=== PATIENT | male | born 1950 | race Caucasian/White ===

== ENCOUNTER 2021-10-03 01:05 | Day surgery (SDC) | payer OTHER, SELFPAY ==
[2021-10-02 13:46] VITALS: BMI 27.6
[2021-10-03] VITALS (10 sets, daily range): BP systolic 139–167; BP diastolic 55–65; PULSE 40–55; RESP 10–16; TEMP 36.2; O2SAT 92–97; BMI 27.5
[2021-10-03 08:07] LABS: Basophils Percent Auto 0.2 % (0.2-1.2); Eosinophils Absolute Auto 0.1 K/mm3 (0-0.3); Eosinophils Percent Auto 1.7 % (0-4.4); Hemoglobin 14.5 g/dL (14.0-18.0); Immature Granulocyte Absolute 0.02 K/mm3 (0.00-0.031); Immature Granulocyte Percent A 0.3 % (0-0.5); Lymphocytes Absolute Auto 2.49 K/mm3 (0.9-3.2); Lymphocytes Percent Auto 43.5 % (18.3-44.2); Mean Corpuscular Hemoglobin 30.7 pg (26-34); Mean Corpuscular Volume 93.2 fl (80-100); Mean Platelet Volume 11.8 fl (7.4-10.4); Monocytes Absolute Auto 0.5 K/mm3 (0.1-0.6); Monocytes Percent Auto 9.4 % (2.6-8.5); Neutrophils Absolute Auto 2.6 K/mm3 (1.3-6.7); Neutrophils Percent Auto 44.9 % (45.5-73.1); Platelet Count Result 250 k/mm3 (150-375); Red Blood Count 4.72 M/mm3 (4.6-6.20); Red Cell Distribution Width 13.2 % (11.5-14.5); White Blood Count 5.7 K/mm3 (4.5-10.0)
[2021-10-03 08:19] LABS: Anion Gap 6 mmol/L (8-16); Blood Urea Nitrogen 27 mg/dL (9-20); Calcium 10.3 mg/dL (8.4-10.2); Carbon Dioxide 33 mmol/L (22-30); Chloride 106 mmol/L (98-107); Estimated CRCL calculation 54 ml/min; Estimated Glomerular Filt Rate 60; Glucose 120 mg/dL (65-110); Potassium 4.7 mmol/L (3.4-5.0); Sodium 145 mmol/L (137-145)
--- NOTE | 2021-10-03 10:22 | P.PCNCC_ITS ---
Cardiac Cath Procedure Note Date of procedure:: 10/03/21 Performing physician:: Kira Monique MD date of service 10/03/2021 Indication:: Abnormal stress test Brief clinical history:: this 70 year patient with past history CABG 17 years ago setting inability to stent artery. he was told it was to the back of the heart. He has been experiencing intermittent pins and needles discomfort in the chest with no aggravating relieving factors. Underwent stress test that shows fixed defect in the inferior wall. Procedure Procedure performed:: 1-Moderate sedation that started at 9:40 a.m.and ended at 10:03 a.m. total duration of 23 minutes using 2mg of Versed [id number] fentanyl. The registered nurse was conner bearden. 2-Selective left and right coronary angiogram. 3-Left heart catheterization with measurement of LVEDP and measurement of gradient across aortic valve. 4- selective left subclavian arterial angiogram. 4-Right common femoral arterial angiogram. 5-Deployment of 6 Panamanian Angio-Seal. Sedation/Medication given:: Moderate sedation. Access site:: Right common femoral artery. Estimated blood loss:: 10cc Procedure note:: After informed consent patient was brought in to cathode ray tube assembler with the was draped and prepped in usual manner. Moderate sedation was given and the right groin was infiltrated using 1% lidocaine. Five Panamanian sheath was obtained using micropuncture needle and the modified Seldinger technique. Selective left coronary angiogram was done using JL4 catheter with the tip of the catheter placed in the left main coronary artery. Selective right coronary angiogram was done using JR4 catheter with the tip of the catheter placed to the right coronary artery. JR4 catheter was entered in the left subclavian artery and th en selective left subclavian arterial angiogram was done as well.After that 5 Panamanian pigtail catheter was advanced across the aortic valve into the left ventricle with measurement of LVEDP and measurement of gradient across aortic valve. Right common femoral arterial angiogram was done. Findings:: 1- left coronary artery is a large artery that divides into large LAD, large circumflex artery. Left main Has minimal irregularities. 2- left anterior descending artery is a large artery that runs and wraps around the apex. Has diffuse proximal 30% proximally. there is evidence of clips in the LAD territory. However no competitive flow seen. 3- leftcircumflex artery is a large artery With minimal irregularities. Large OM1 and large OM2. Minimal irregularities. 4- right coronary artery is Totally occluded proximally. 5- Left subclavian artery angiogram shows no significant disease in the left subclavian artery and no evidence that ENRIQUE exists. Most likely it is occluded . 5- LVEDP was 20 mm Hg and no gradient across aortic valve. 6- opening arterial pressure was 150/70 and closing pressure [id number] 7- right femoral artery angiogram shows no significant disease in the right common femoral artery. Conclusion:: Totally occluded right coronary artery. ENRIQUE is non-existent and most likely occluded. Assessment and Plan Additional Plan Continue medical management
--- NOTE | 2021-10-03 10:33 | WPDHPUPDATE1 ---
History and Physical Update Update Date/Time: 10/03/21 10:33 History and Physical has been reviewed, including an updated exam of the patient. There are NO changes in the patient's condition. Risks, benefits, and alternatives have been discussed and questions answered. Patient agrees to proceed with procedure.
--- NOTE | 2021-10-03 10:33 | WPDMODSED ---
Moderate Sedation Note-Pt Data Patient Data Allergies Allergy/AdvReac Type Severity Reaction Status Date / Time No Known Allergies Allergy Verified 10/03/21 07:55 Home Medications Medication Instructions Recorded Confirmed Type aspirin 81 mg tablet,delayed 81 mg PO DAILY 05/10/21 10/03/21 History release celecoxib 200 mg capsule 200 mg PO BID 90 Days #180 cap 05/10/21 10/02/21 Rx escitalopram oxalate 20 mg tablet 20 mg PO DAILY 90 Days #90 tablet 05/10/21 10/02/21 Rx fenofibrate nanocrystallized 145 145 mg PO DAILY #90 tablet 05/10/21 10/02/21 Rx mg tablet rosuvastatin 20 mg tablet 20 mg PO DAILY 90 Days #90 tablet 05/10/21 10/03/21 Rx Current Medications: Active Medications Sodium Chloride (Normal Saline Iv) 500 mls @ 100 mls/hr IV CONT .Q5H [place] Sedation/Anesthesia: No previous sedation/anesthesia problems (including family history). [facility] Past Medical History Medical History Annual visit for general adult medical examination with abnormal findings Facial skin lesion Heart attack Vitamin D deficiency, unspecified Surgical History Surgical History History of open heart surgery Family History Family History Father Family history of primary malignant neoplasm of liver Mother Family history of malignant neoplasm of brain Other Diabetes mellitus Family history of arthritis Family history of malignant neoplasm Social History Social History Smoking status: Former smoker Second hand tobacco smoke exposure: No Smoking end date: 10/02/21 Alcohol intake: current Living arrangements: with family Gender identity (if verbalized by the patient): Male Sexual Orientation (if Verbalized by the Patient): Straight or Heterosexual Mod Sed Physical Exam Physical Exam Pre Procedural Exam: Normal: Appearance, Eyes, Ears, Nose, Neck, Throat, Airway, Lungs, Heart Size, Heart Rate, Heart Rhythm, Neuro Exam, Abdomen, Liver, Kidneys, Spleen, Breasts, Genitalia, Extremities and Skin Hours since solid foods: 8 Hours since liquid intake: 8 Mallampati Classification: class 1 Internal Medicine - PN: Obj Da Vital Signs Vital Signs: Vital Signs - 24 hr 10/03/21 07:58 Temperature 36.2 C L Pulse Rate 55 L Respiratory Rate 12 Blood Pressure 167/60 H Pulse Oximetry 95 Meds/Results Medications: Active Medications Generic Name Dose Route Start Last Admin Trade Name Freq PRN Reason Stop Dose Admin Sodium Chloride 500 mls @ 100 mls/hr 10/03/21 07:30 Normal Saline Iv IV CONT .Q5H [place] Labs CBC & Chem 7: 10/03/21 07:46 10/03/21 07:46 Labs: Laboratory Results - last 24 hr 10/03/21 10/03/21 07:46 07:46 WBC 5.7 RBC 4.72 Hgb 14.5 Hct 44.0 MCV 93.2 MCH 30.7 MCHC 33.0 RDW 13.2 Plt Count 250 MPV 11.8 H Immature Gran % (Auto) 0.3 Neut % (Auto) 44.9 L Lymph % (Auto) 43.5 Posey % (Auto) 9.4 H Eos % (Auto) 1.7 Baso % (Auto) 0.2 Lymph # (Auto) 2.49 Posey # (Auto) 0.5 Eos # (Auto) 0.1 Baso # (Auto) 0.0 Abs Immat Gran (auto) 0.02 Absolute Neuts (auto) 2.6 Absolute Nucleated RBC 0.0 Nucleated RBC % 0.0 Sodium 145 Potassium 4.7 Chloride 106 Carbon Dioxide 33 H Anion Gap 6 L BUN 27 H Creatinine 1.20 Estim Creat Clear Calc 54 Estimated GFR 60 Glucose 120 H Calcium 10.3 H ASA Classification/Sedation ASA Classification/Sedation ASA Class: I Emergent: No Risks: Risks, benefits and alternatives explained and patient/family accepted plan for sedation. Patient re-evaluated immediately prior to sedation.
--- NOTE | 2021-10-03 13:39 | SUR.PHASEII ---
d/c instructions given to patient and at bedside. written instructions sent home with patient. all questions and concerns addressed. iv d/c tip intact. patient ambulated around room w/o difficulty and transferred to personal vehicle via wheelchair.
== END 2021-10-03 13:39 | disposition home or self-care (01) ==
PROVIDERS: PCP Internal Medicine; Visit Provider Internal Medicine Cardiovascular Disease
PROC: 4A023N7 Measurement of Cardiac Sampling and Pressure, Left Heart, Percutaneous Approach (ICD-10-PCS; CPT 93452; principal; 2021-10-03 09:00)
DX: I25.10 Atherosclerotic heart disease of native coronary artery without angina pectoris (principal); R93.49 Abnormal radiologic findings on diagnostic imaging of other urinary organs; R07.89 Other chest pain; Z95.1 Presence of aortocoronary bypass graft; I25.2 Old myocardial infarction; E55.9 Vitamin D deficiency, unspecified; E78.5 Hyperlipidemia, unspecified; Z79.82 Long term (current) use of aspirin; Z87.891 Personal history of nicotine dependence
CPT/HCPCS: 36415; 80048; 85025; 93458; C1760; C1887; C1894; G0269; J1644; J2250; J3010

== ENCOUNTER 2022-05-29 07:42 | Outpatient (CLI) | payer OTHER, SELFPAY ==
--- NOTE | ~2022-05-29 | US_ITS ---
EXAMINATION: US right upper quadrant DATE: 05/29/2022 08:39 INDICATION: Abnormal liver function tests. TECHNIQUE: Multiple grayscale and Doppler ultrasound images of the abdomen were obtained. COMPARISON: Chest CT 09/28/2010 FINDINGS: The visualized portions of the head and body of the pancreas are normal. There is diffuse h epatic steatosis. There is normal flow in main portal vein. The gallbladder is normal in size. No gal lstones or gallbladder wall thickening. There is no sonographic Bunch sign. The common duct is pablo l and measures 5 mm. IMPRESSION: 1. Diffuse hepatic steatosis. Reviewed, dictated and finalized at location A.
== END 2022-05-29 07:43 | disposition home or self-care (01) ==
PROVIDERS: PCP Internal Medicine; Visit Provider Clinical Nurse Specialist
DX: R74.01 Elevation of levels of liver transaminase levels (principal); K76.0 Fatty (change of) liver, not elsewhere classified
CPT/HCPCS: 76705

== ENCOUNTER 2022-06-17 07:53 | Outpatient (CLI) | payer OTHER, SELFPAY ==
--- NOTE | 2022-07-14 18:03 | WPDSLEEPSTUD ---
Sleep Study Date of Study: 06/17/22 Ordering Provider: COTY Durham Interpreting Physician: Toya Connolly, Sleep Study Type: Split Polysomnogram Height: 1.78 m Weight: 87.09 kg Body Mass Index: 27.5 Neck Circumference (inches): 18 [place]: 9 Reason for Sleep Study Unrefreshing sleep and daytime hypersomnia Sleep History The patient had a polysomnogram at [facility] on 08/06/2008 that showed an AHI of 24.4. It was recommended that he have a PAP Titration study. It was never completed. The patient is a 71-year-old male with CAD w/ CABG x2, hypertension, hyperlipidemia, hepatic steatosis, depression, history of tobacco use and previously diagnosed sleep apnea that had a split night study ordered by his primary care physician. The patient occasionally awakens from sleep short of breath. He denies awakening at night with heartburn, belching or cough. He occasionally snores loud enough that others complain. He rarely has trouble sleeping when he has a cold. He occasionally wakes up gasping for air throughout the night. He frequently has breathing problems at night observed by himself or others. He occasionally sweats excessively at night. He denies having heart palpitations or irregular heartbeats during the night. He occasionally falls asleep during the day but never while driving. He denies sleep paralysis and cataplexy. He occasionally has trouble at school or work due to sleepiness. He occasionally experiences vivid dreamlike scenes upon awakening or falling asleep. He denies feeling afraid of going to sleep. He occasionally has nightmares. He occasionally remembers his dreams. He frequently has thoughts racing through his mind. He occasionally feels sad or depressed. He frequently has anxiety. He occasionally has muscular tension. He denies noticing parts of his body jerk. He occasionally kicks during the night. He occasionally has crawling and aching feelings in his legs as well as leg pain during the night. He occasionally grinds his teeth during sleep but never awakens with morning jaw pain. He is occasionally bothered by pain during the day but rarely awakened by pain during the night. He occasionally wakes up feeling stiff in the morning. He rarely wakes up with sore achy muscles. He rarely wakes up with pain in the neck, spine and other joints. He goes to bed at 9:00 p.m. on both weekdays and weekends. It takes him 30 minutes to an hour to fall asleep. He wakes up 2-3 times throughout the night for unknown reasons. When he awakens, he will think of things he needs to do for the next day. He is able to fall asleep within 10 minutes. He wakes up at 7:00 a.m. on both weekdays and weekends. He typically gets 9 hours of sleep per night. He will stay in bed for 20 minutes after waking up in the morning. He currently lives with his . He does not consume any caffeinated beverages within 2 hours of bedtime. He does not engage in physical exercise before bedtime. He will watch television before falling asleep. He will take naps in the afternoon in the evening and they are refreshing. He consumes caffeinated products throughout the day. He will drink alcoholic beverages but the quantity was not specified. He is a former smoker. He denies recreational drug use. [facility] Past Medical History Medical History Annual visit for general adult medical examination with abnormal findings Facial skin lesion Heart attack Vitamin D deficiency, unspecified Surgical History Surgical History History of open heart surgery Family History Family History Father Family history of primary malignant neoplasm of liver Mother Family history of malignant neoplasm of brain Other Diabetes mellitus Family history of arthritis Family
[2022-07-14 18:52] VITALS: BMI 27.5
--- NOTE | 2023-11-19 13:20 | SLEEP ---
pt returned device
== END 2022-06-18 07:03 | disposition home or self-care (01) ==
LOC: ANHCSM 08:11
PROVIDERS: PCP Internal Medicine; Visit Provider Clinical Nurse Specialist
DX: G47.10 Hypersomnia, unspecified (principal); G47.39 Other sleep apnea
CPT/HCPCS: 95811

== ENCOUNTER 2022-06-17 13:47 | Outpatient (CLI) | payer OTHER, SELFPAY ==
--- NOTE | ~2022-06-17 | CT_ITS ---
EXAMINATION: CT diagnostic chest w con DATE: 06/17/2022 14:29 INDICATION: 7 mm lung nodule reported on CT scan at [facility] in November 2021 TECHNIQUE: Computed tomography (CT) of the chest was performed with 75 CC Omnipaque 350 intravenous c ontrast. Automated exposure control and iterative reconstruction technique were employed. Exam dose: 257.13 mGy-cm total exam DLP. COMPARISON: 08/18/2011 PA and lateral chest FINDINGS: Status post sternotomy. 2.6 mm peripheral posterolateral right upper lobe pulmonary nodule (series 4 image 44). Calcified 1.3 cm pulmonary granuloma at the base of the middle lobe. No pulmonary infiltrate or consolidation. There is aortic and great vessel calcification. No thoracic aortic aneurysm. There is prominent coron kimmie artery calcification. Normal heart size. No pericardial or pleural effusion. No hilar or mediastinal mass lesion or lymphadenopathy. Bilateral renal cysts, measuring up to 4.4 cm on the left. Normal morphology of the adrenal glands. Old healed posterolateral right ninth rib fracture. Prominent degenerative disc disease in the lower cervical spine including C5-6, C6-7 and C7-T1. Diffu se idiopathic skeletal hyperostosis of the thoracic spine. No suspicious osteolytic or osteoblastic l esions are noted. IMPRESSION: Middle lobe calcified pulmonary granuloma No suspicious pulmonary mass lesion is noted. Correlation with prior CT examination from [facility] is recommended. Aortic, great vessel and coronary atherosclerosis Bilateral renal cysts Reviewed, dictated and finalized at Location A. Reviewed, dictated and finalized at location B. IMPRESSION: Middle lobe calcified pulmonary granuloma No suspicious pulmonary mass lesion is noted. Correlation with prior CT examina tion from [facility] is recommended. Aortic, great vessel and coronary atherosclerosis Bilateral renal cysts
[2022-06-17 14:25] LABS: Estimated Glomerular Filt Rate > 60
== END 2022-06-17 13:48 | disposition home or self-care (01) ==
PROVIDERS: PCP Internal Medicine; Visit Provider Clinical Nurse Specialist
DX: R91.1 Solitary pulmonary nodule (principal); R91.8 Other nonspecific abnormal finding of lung field; N28.1 Cyst of kidney, acquired; I70.0 Atherosclerosis of aorta
CPT/HCPCS: 71260; Q9967

== ENCOUNTER 2022-08-01 08:55 | Outpatient (CLI) | payer OTHER, SELFPAY ==
--- NOTE | 2022-08-01 08:58 | ECHO_ITS ---
Patient Info Name: Juanito Reed Age: 71 years : 1950 Gender: Male Ht: 70 in Wt: 194 lbs BSA: 2.10 m2 HR: 56 bpm BP: 142 / 69 mmHg Heart Rhythm: Sinus Rhythm Technical Quality: Good Exam Date: 08/01/2022 9:15 AM Exam Location: [facility] Patient Status: Outpatient Admit Date: 08/01/2022 Staff Ordering Physician: Carmencita King Flying Ii Instructor: Estephania Boone RDCS Attending Provider: Carmencita King Referring Physician: Fernando CHAVIRA; Exam Type: CA echo doppler color flow Study Info Indications G47.33 - OBSTRUCTIVE SLEEP APNEA Complete two-dimensional, color flow and Doppler transthoracic echocardiogram is performed. Summary 1. Complete two-dimensional, color flow and Doppler transthoracic echocardiogram is performed. 2. Left ventricular chamber dimension is normal. 3. Left ventricular systolic function is normal, estimated at 60-65%. 4. Left atrial chamber dimension is mildly enlarged. 5. There is mild aortic valve sclerosis. 6. The mitral valve has normal leaflets. Left Ventricle Left ventricular chamber dimension is normal. Left ventricular systolic function is normal, estimated at 60-65%. The left ventricular diastolic function is normal. Right Ventricle Right ventricular chamber dimension is normal. Left Atria Left atrial chamber dimension is mildly enlarged. Right Atria Right atrial chamber dimension is normal. Aortic Valve The aortic valve is trileaflet. There is mild aortic valve sclerosis. Pulmonic Valve The pulmonic valve is normal. Mitral Valve The mitral valve has normal leaflets. Tricuspid Valve The tricuspid valve leaflets are normal. Pericardium/Pleural The pericardium appears normal. Aorta The aortic root size at the sinus of Valsalva is normal. Left Ventricular Outflow Tract Name Value Normal LVOT 2D LVOT Diameter 2.0 cm LVOT Doppler LVOT Peak Gradient 5 mmHg LVOT Mean Gradient 2 mmHg LVOT VTI 26 cm LVOT VTI/AV VTI Ratio 1.0 LVOT Stroke Volume 85 ml LVOT CO 5.1 l/min LVOT CI 2.4 l/min/m2 Pulmonic Valve Name Value Normal RVOT Doppler RVOT Peak Gradient 3 mmHg PV Doppler PV Peak Gradient 5 mmHg Mitral Valve Name Value Normal MV Doppler MV Decel [facility] 353 cm/s2
== END 2022-08-01 08:56 | disposition home or self-care (01) ==
LOC: ANHCARD 08:57
PROVIDERS: PCP Family Medicine; Visit Provider Clinical Nurse Specialist
DX: G47.33 Obstructive sleep apnea (adult) (pediatric) (principal); I45.10 Unspecified right bundle-branch block
CPT/HCPCS: 93306

== ENCOUNTER 2022-08-14 07:39 | Outpatient (CLI) | payer OTHER, SELFPAY ==
--- NOTE | 2022-08-14 13:25 | WPDPFTINT ---
PFT Procedure Performed PFT Procedure Performed Spirometry with Pre/Post Bronchodilator Plethysmography (Lung Vol) Diffusing Cap (DLCO) Flow Vol Loop PFT Interpretation This is a pulmonary function test with pre and post-bronchodilator spirometry, plethysmography and diffusing capacity. The test was performed and results interpreted in accordance with the 2019 and 2005 ATS/ERS Task Force guidelines respectively using the Global Lung Function Initiative-2012 reference equations. Patient demonstrated good effort and cooperation. Reproducibility criteria were met. The quality of the pre bronchodilator spirometry maneuver was Grade A and post bronchodilator spirometry maneuver was Grade A. Findings: Spirometry: The contour the inspiratory and expiratory flow tracing are normal. The pre bronchodilator FVC is 3.79 L, 91% predicted. The pre bronchodilator FEV1 is 2.69 L, 85% predicted. The pre bronchodilator FEV1: FVC ratio 71%. The post bronchodilator FVC is 4.16 L, representing a 10% increase. The post bronchodilator FEV1 is 2.94 L, representing a 10% increase. The post bronchodilator FEV1: FVC ratio 71%. Plethysmography: The total lung capacity is 6.62 L, 94% predicted. The functional residual capacity is 3.25 L, 87% predicted. The residual volume is 2.71 L, 108% predicted. Diffusing capacity: Diffusing capacity unadjusted for hemoglobin and carboxyhemoglobin is 17.7, 69% predicted. The diffusing capacity adjusted for alveolar volume is 3.71, 96% predicted. Impression: The spirometry is normal without evidence of an obstructive abnormality. There is no significant improvement after inhaling a single dose of albuterol. The lung volumes are normal. The diffusing capacity is normal. There are no prior studies for comparison
== END 2022-08-14 07:40 | disposition home or self-care (01) ==
PROVIDERS: PCP Clinical Nurse Specialist; Visit Provider Clinical Nurse Specialist
DX: G47.33 Obstructive sleep apnea (adult) (pediatric) (principal)
CPT/HCPCS: 94375; 94726; 94729

== ENCOUNTER → 2023-03-18 10:06 | Outpatient (CLI) | payer OTHER, SELFPAY ==
--- NOTE | ~2023-03-18 | CT_ITS ---
EXAMINATION: CT abdomen pelvis wo/w con DATE: 03/18/2023 10:43 INDICATION: Gross hematuria TECHNIQUE: Computed tomography (CT) of the abdomen and pelvis was performed without intravenous contr ast. CT of the abdomen and pelvis was then performed with a total of 130 mL Omnipaque-350 intravenous contrast using a double-bolus technique for simultaneous opacification of the renal parenchyma and r enal collecting system. Maximum intensity projection images of the collecting system were created fro m the volumetric source images by the technologist at a separate workstation. A single view of the ab domen was obtained on 2 radiographs. Automated exposure control and iterative reconstruction techniqu e were employed. The dose-length product was 2090.51 mGy-cm. COMPARISON: None FINDINGS: Lung bases are clear. Heart size is normal. Atherosclerotic coronary artery calcifications. Mediastin um wires and changes of likely coronary artery bypass grafting as well as coronary artery stenting. N o pericardial or pleural effusion. Liver, gallbladder, spleen, pancreas and bilateral adrenal glands are normal. Bilateral renal cysts the largest measuring 5.6 at the upper pole the left kidney and a 5 .3 cm parapelvic cyst at the left renal hilum. This includes an additional 1.4 cm nonenhancing comple x proteinaceous/hemorrhagic left renal cyst with slightly greater than simple fluid attenuation. No u rolithiasis. Bilateral and renal collecting systems and ureters are opacified in their near entirety. 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 No evident fillin g defects or urothelial irregularities. There are few scattered colonic diverticula without adjacent from trace stranding to suggest diverticulitis. Small bowel and appendix are normal. Bladder is pablo l. Prostatomegaly measuring 5.2 x 4.0 cm. No free intraperitoneal gas or fluid. No pathologically enl arged abdominal or pelvic lymphadenopathy. There is calcified atherosclerosis of the aorta and many o f the other arteries. There are bridging osteophytes at multiple levels in the spine, consistent with diffuse idiopathic skeletal hyperostosis (DISH). IMPRESSION: 1. Multiple bilateral renal cysts. No etiology for reported gross hematuria. Specifically no urolithi asis, renal masses or urothelial irregularities. 2. Prostatomegaly. Reviewed, dictated and finalized at location B. IMPRESSION: 1. Multiple bilateral renal cysts. No etiology for reported gross hematuria. Sp ecifically no urolithiasis, renal masses or urothelial irregularities. 2. Prostatomegaly.
== END ==
PROVIDERS: PCP Clinical Nurse Specialist; Visit Provider Clinical Nurse Specialist
DX: R31.9 Hematuria, unspecified (principal); N28.1 Cyst of kidney, acquired; N40.0 Benign prostatic hyperplasia without lower urinary tract symptoms
CPT/HCPCS: 74178; Q9967

== ENCOUNTER 2023-03-26 00:40 | Day surgery (SDC) | payer OTHER, SELFPAY ==
[2023-03-25 08:52] VITALS: BMI 29.6
--- NOTE | 2023-03-25 09:15 | PC.NURSE ---
Report to the Outpatient Waiting Room, entrance under the green pavilion located off [facility], at time ___729____ on date __03/26/23 . Planned Procedure Time: ___929 . Time changes happen often and if your time is changed the preop area will call you the afternoon before. - You and your visitor will be asked to self-screen and do not enter if you have any COVID symptoms. - A mask is optional within the hospital at this time. Patients may have clear liquids (water, carbonated beverages, clear teas, apple juice) until 3 hours prior to surgery (0630 AM) with a maximum of 20 ounces. - No food from midnight until time of surgery - Infants may have breast milk until 4 hours before surgery, infant formula 6 hours prior to surgery. - Children will be allowed to drink immediately following surgery. If applicable, please bring a bottle or sippy cup to assist with drinking. Juice, water, soda, and popsicles are readily available. For infants on formula, please bring formula the day of surgery. Pacifiers are allowed. Take the following medications with a SIP of water the morning of surgery: _AMLODIPINE, CELECOXIB, ESCITALOPRAM_ DO NOT STOP ANY OF YOUR OTHER PRESCRIPTION MEDICATIONS PRIOR TO SURGERY ?EXCEPT THE FOLLOWING Medications to discontinue per physician ___PT STATES LAST DOSE ASPIRIN 03/23/23___ Date to take last dose Please no make-up, nail romanian, hairspray, perfume, deodorant, or body powder the day of surgery. No jewelry (including any body piercings) or valuables the day of surgery, leave them at home. Please take a shower or bath the night before, or the morning of, surgery with an antibacterial soap. Wear comfortable, loose fitting clothing. Children are encouraged to wear pajamas. - Jewelry must be removed prior to entering the operating room. Rings and piercings that are not removed may be cut off. - The hospital will not accept responsibility for valuables. - Please leave all valuables, including medications, at home the day of surgery. If you are going home after surgery, a licensed trash collector truck driver must drive you home. - NO public transportation without another adult if you receive anesthesia. - We recommend that an adult stay with you for 24 hours following discharge. - We also recommend that you do not drive, make important decision, drink alcoholic beverages, or take any drugs that were not prescribed by your health care provider for at least 24 hours after your discharge time. For Pediatric surgeries, we recommend two adults accompany the child home. Follow any additional instructions given to you from your surgeon. If you or anyone in your household have experienced Covid symptoms in the past week, please notify your surgeon or the nurse liaison at the phone number below for possible testing. Telephone instructions given to ___PT and asked if any additional questions and then verbalized understanding. Patient advised to call surgeon office or pre surgery nurse liaison [phone] if any additional questions.
[2023-03-26] VITALS (9 sets, daily range): BP systolic 129–161; BP diastolic 43–83; PULSE 37–55; RESP 10–23; TEMP 36.2–36.9; O2SAT 92–100
--- NOTE | 2023-03-26 06:15 | ECG_ITS ---
Measurements Intervals [place] Rate: 38 P: -5 MI: 155 QRS: -40 QRSD: 97 T: 0 QT: 452 QTc: 360 Interpretive Statements SINUS BRADYCARDIA LEFT AXIS DEVIATION INCOMPLETE RIGHT BUNDLE BRANCH BLOCK BORDERLINE T WAVE ABNORMALITY- ANTEROLATERAL LEADS ABNORMAL ECG NO PREVIOUS ECG AVAILABLE FOR COMPARISON Electronically Signed On 03-26-2023 8:59:48 CDT by Sorin Morin D.O.
--- NOTE | 2023-03-26 06:46 | WPDHPUPDATE1 ---
History and Physical Update Update Date/Time: 03/26/23 06:46 History and Physical has been reviewed, including an updated exam of the patient. There are NO changes in the patient's condition. Risks, benefits, and alternatives have been discussed and questions answered. Patient agrees to proceed with procedure.
--- NOTE | 2023-03-26 08:30 | WPDANESEPPF ---
Anes - Initial Pre Proc Eval Procedure: Operation Date: 03/26/23 09:30 Proposed Procedures p Trans Urethral Resection Bladder Tumor with Gemcitabine Instillation - Alex May MD Date/Time: 03/26/23 08:30 Surgeon: Alex May MD Pre Op Diagnosis: Gross Hematuria Patient Data Age: 72 Gender: M Height: 1.78 m Weight: 93.63 kg Allergies Allergy/AdvReac Type Severity Reaction Status Date / Time No Known Allergies Allergy Verified 03/25/23 08:50 Home Medications Medication Instructions Recorded Confirmed Type aspirin 81 mg tablet,delayed 81 mg PO DAILY 05/10/21 03/25/23 History release (Adult Low Dose Aspirin) fenofibrate nanocrystallized 145 145 mg PO DAILY #90 tabs 03/12/22 03/25/23 Rx mg tablet amlodipine 5 mg tablet 5 mg PO DAILY 06/09/22 03/25/23 History escitalopram oxalate 20 mg tablet 20 mg PO DAILY 90 days #90 tabs 12/10/22 03/25/23 Rx CPAP Equipment #1 ea 12/29/22 03/25/23 Rx rosuvastatin 20 mg tablet 20 mg PO DAILY #90 tabs 01/23/23 03/25/23 Rx PAP Settings #1 ea 02/04/23 03/25/23 Rx eszopiclone 2 mg tablet (Lunesta) 2 mg PO QHS #30 tabs 02/04/23 03/25/23 Rx celecoxib 200 mg capsule (Celebrex) 200 mg PO BID 90 days #180 caps 02/27/23 03/25/23 Rx Patient hx anesthesia problems: none Family hx anesthesia problems: none Results Review: All pre-operative results and documents have been reviewed as part of the pre-operative evaluation. [facility] Past Medical History Medical History Annual visit for general adult medical examination with abnormal findings Facial skin lesion Heart attack Vitamin D deficiency, unspecified Surgical History Surgical History (Updated 03/26/23 @ 08:31 by Quincy Kelly MD) History of open heart surgery CABG x 2 ' Family History Family History Father Family history of primary malignant neoplasm of liver Mother Family history of malignant neoplasm of brain Other Diabetes mellitus Family history of arthritis Family history of malignant neoplasm Social History Social History Smoking packs per day: 1.5 Smoking cigarettes per day: 30.0 Years smoked: 38 Smoking pack-years: 57.00 Smoking status: Former smoker Tobacco type: cigarettes Second hand tobacco smoke exposure: No Smoking end date: 11/16/03 Alcohol intake: current Alcohol use details: STATES NONE 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, BEER ON WEEKENDS summer Substance use: never Substance use type: does not use Lack of Transportation: No Lack of Food: Never True Current Housing: I Have Housing Concerned About Future Housing: No Difficulty Paying Gas/Electric Bills: No Difficulty Paying for Meds: No Currently Unemployed: No Education: Grade School Difficulty w/ Childcare or Family Care: No Living arrangements: with family Gender identity (if verbalized by the patient): Male Sexual Orientation (if Verbalized by the Patient): Straight or Heterosexual Spiritual care concerns: No Anes - Eval Final PreProcedure Day of Procedure 03/26/23 08:30 Patient weight: overweight Heart: bradycardia Lungs: clear to auscultation Airway: Mallampati scale class II Neurological: alert and oriented Last oral intake: >/= 8 hours ASA classification: III Emergent: no Anesthetic plan: proceed Anesthesia type and monitoring: general LMA and standard monitoring Results Review: All pre-operative results and documents have been reviewed as part of the pre-operative evaluation. Informed Consent: The patient's anesthetic plan and its attendant risks and benefits were discussed with the patient/family/POA. Questions were solicited and answers provided to the satisfaction of the patient/family/POA.
[2023-03-26] MEDS: LACTATED RINGERS 1,000 ML 30 ML IV CONT (08:58)
[2023-03-26] MEDS: ceFAZolin 2 GM/D5W 50 ML 2 GM/50 ML BAG IVPB (09:24)
[2023-03-26] MEDS: LIDOCAINE HCL 2% GEL UROJET 10 ML PKG MUCOUS MEM (09:39)
[2023-03-26] MEDS: SODIUM CHLORIDE 0.9% IV 23.7 ML, GEMCITABINE HCL 1,000 MG BLADDER ×2 (09:49→09:50)
--- NOTE | 2023-03-26 09:54 | W.PM.PROC2 ---
Procedure Note - Detailed Date of Procedure 03/26/23 Pre-op Diagnosis Gross hematuria, bladder tumor Post-op Diagnosis Same Procedure Performed TURBT (medium, 3-4cm) Surgeon Alex May MD Anesthesia General Findings Papillary neoplasm right posterior-lateral baldder wall. Description of Procedure patient is brought to the operative suite was prepped draped in routine sterile fashion while in dorsal lithotomy position after the uneventful induction of a general LMA anesthetic. 24F resectoscope was placed into his bladder. He has moderate lateral lobe hyperplasia of the prostate without a median lobe. Careful inspection of the bladder shows a 3-4 cm papillary neoplasm in the right posterior lateral bladder wall, above the right ureteral orifice. The remainder of the bladder was perfectly normal without any mucosal hyperemia. He has a single orthotopic ureteral orifice bilaterally. These are identified and preserved throughout the procedure. Using a loop electrode the neoplasm was resected with an attempt made to include detrusor muscle for pathological evaluation of invasion. Base and periphery was cauterized with the loop and a rollerball electrode. Bladder was emptied and a 18F coude catheter was placed to drainage. The patient tolerated procedure well was taken recovery in good condition Drains Yes Packing No Pathology Yes Complications No immediate complications Condition Stable
--- NOTE | 2023-03-26 09:57 | W.PM.PROC2 ---
Procedure Note - Detailed Date of Procedure 03/26/23 Pre-op Diagnosis Bladder tumor Post-op Diagnosis Same Procedure Performed Gemcitabine installation Surgeon Alex May MD Anesthesia None Description of Procedure With the patient in the supine position, a 18F Machado catheter is placed using sterile technique. Using a protective facemask, gown and double layer of gloves Gemcitabine 2gm in 100cc saline is administered through the catheter/into the bladder. The catheter is then plugged. Patient was instructed to lie supine x20min, then to roll both the left and right x20 min. each. Total dwell time will be 60 min., after which the bladder will be drained and catheter removed. Drains No Pathology None sent Complications No immediate complications
--- NOTE | 2023-03-26 10:12 | SUR.PREOP ---
1010 PT TURNED TO RIGHT SIDE
--- NOTE | 2023-03-26 10:29 | SUR.PHASEI ---
1030 PT TURNED TO LEFT SIDE
[2023-03-26] MEDS: SODIUM CHLORIDE 0.9% IV 50 ML BAG 150 ML IRRIGATION (10:58)
== END 2023-03-26 12:15 | disposition home or self-care (01) ==
PROVIDERS: PCP Clinical Nurse Specialist; Visit Provider Urology
PROC: 0TBB8ZZ Excision of Bladder, Via Natural or Artificial Opening Endoscopic (ICD-10-PCS; CPT 52235; principal; 2023-03-26 09:30)
DX: C67.8 Malignant neoplasm of overlapping sites of bladder (principal); I25.2 Old myocardial infarction; Z79.82 Long term (current) use of aspirin; Z95.1 Presence of aortocoronary bypass graft; Z87.891 Personal history of nicotine dependence
CPT/HCPCS: 52235; 51720; 88305; 93005; J0690; J1100; J2405; J2704; J3010; J7120; J9201

== ENCOUNTER 2023-05-04 09:49 | Outpatient (CLI) | payer OTHER, SELFPAY ==
[2023-05-04 10:32] LABS: Kit Draw Collected
== END 2023-05-04 09:50 | disposition home or self-care (01) ==
LOC: ANHGOSHLAB 09:50
PROVIDERS: PCP Clinical Nurse Specialist; Visit Provider Clinical Nurse Specialist
DX: R53.83 Other fatigue (principal); E55.9 Vitamin D deficiency, unspecified
CPT/HCPCS: 36415

== ENCOUNTER 2024-05-30 00:17 | Day surgery (SDC) | payer OTHER, SELFPAY ==
[2024-05-30] VITALS (13 sets, daily range): BP systolic 146–169; BP diastolic 45–74; PULSE 43–80; RESP 10–18; TEMP 35.9–36.6; O2SAT 90–98; BMI 27.5
--- NOTE | ~2024-05-30 | XR_ITS ---
XR chest 2V Ordering provider: Rao Yao MD History: 73 years Male with . 24 hours post pacemaker insertion . Comparison: May 30, 2024 FINDINGS: MEDIASTINUM: The cardiac silhouette is not enlarged. Left bipolar pacemaker. Postoperative changes in the mediastinum. LUNGS: No infiltrates, effusions or pneumothorax. OTHER: Degenerative spine. No free air under the diaphragm. IMPRESSION: No acute cardiopulmonary pathology. Reviewed, dictated and finalized at location A.
--- NOTE | ~2024-05-30 | XR_ITS ---
XR chest 1V portable Ordering provider: Rao Yao MD History: 73 years Male with . pacemaker insertion . Comparison: August 18, 2011 FINDINGS: MEDIASTINUM: The cardiac silhouette is not enlarged. Left bipolar pacemaker. Postoperative changes in the mediastinum. LUNGS: No infiltrates, effusions or pneumothorax. Prominent markings bilaterally with minimal interst itial changes. OTHER: No free air under the diaphragm. IMPRESSION: No acute cardiopulmonary pathology. Reviewed, dictated and finalized at location A.
--- NOTE | 2024-05-30 07:00 | ECG_ITS ---
Test Date: 2024-05-30 10:40:20 Measurements Intervals [place] Rate: 60 P: 36 NV: 219 QRS: 240 QRSD: 91 T: 135 QT: 419 QTc: 421 Interpretive Statements ELECTRONIC ATRIAL PACEMAKER CONSIDER LIMB LEAD REVERSAL BASELINE ARTIFACT- I, II, AVR BORDERLINE ECG No previous ECG available for comparison Electronically Signed On 05-30-2024 10:52:57 CDT by Sorin Morin D.O.
[2024-05-30 07:49] LABS: Anion Gap 10 mmol/L (4-12); Blood Urea Nitrogen 19 mg/dL (9-20); Calcium 9.3 mg/dL (8.4-10.2); Carbon Dioxide 29 mmol/L (22-30); Chloride 102 mmol/L (98-107); Estimated CRCL calculation 59 ml/min; Estimated Glomerular Filt Rate > 60; Glucose 115 mg/dL (65-110); Potassium 4.8 mmol/L (3.4-5.0); Sodium 141 mmol/L (137-145)
[2024-05-30 07:50] LABS: Basophils Percent Auto 0.5 % (0.2-1.2); Eosinophils Absolute Auto 0.1 K/mm3 (0-0.3); Eosinophils Percent Auto 1.2 % (0-4.4); Hematocrit 44.5 % (42.0-52.0); Hemoglobin 14.3 g/dL (14.0-18.0); INR 0.9; Immature Granulocyte Absolute 0.01 K/mm3 (0.00-0.031); Immature Granulocyte Percent A 0.2 % (0-0.5); Lymphocytes Absolute Auto 2.16 K/mm3 (0.9-3.2); Lymphocytes Percent Auto 36.5 % (18.3-44.2); Mean Corpuscular HGB Conc 32.1 g/dl (32-36); Mean Corpuscular Hemoglobin 30.2 pg (26-34); Mean Corpuscular Volume 93.9 fl (80-100); Mean Platelet Volume 11.8 fl (7.4-10.4); Monocytes Absolute Auto 0.5 K/mm3 (0.1-0.6); Neutrophils Absolute Auto 3.1 K/mm3 (1.3-6.7); Neutrophils Percent Auto 52.6 % (45.5-73.1); Platelet Count Result 238 k/mm3 (150-375); Prothrombin Time 12.4 Seconds (11.1-14.7); Red Blood Count 4.74 M/mm3 (4.6-6.20); Red Cell Distribution Width 13.5 % (11.5-14.5); White Blood Count 5.9 K/mm3 (4.5-10.0)
--- NOTE | 2024-05-30 10:21 | WPDMODSED ---
Moderate Sedation Note-Pt Data Patient Data Diagnosis: Sick sinus syndrome with symptomatic bradycardia previous coronary artery bypass surgery Present Complaint: this is a 73-year-old man with chronic stable coronary artery disease who has been experiencing fatigue lack of energy and stamina and this is been distributed to sick sinus syndrome. For treatment of this permanent pacemaker implantation has been recommended and is scheduled for today Procedure to be performed/Plan: implantation of permanent Medtronic dual-chamber pacemaker Allergies Allergy/AdvReac Type Severity Reaction Status Date / Time No Known Allergies Allergy Verified 05/30/24 07:26 Home Medications Medication Instructions Recorded Confirmed Type aspirin 81 mg tablet,delayed 81 mg PO DAILY 05/10/21 05/30/24 History release (Adult Low Dose Aspirin) amlodipine 5 mg tablet 5 mg PO HS 06/09/22 05/30/24 History eszopiclone 2 mg tablet (Lunesta) 2 mg PO QHS #30 tabs 02/04/23 05/30/24 Rx celecoxib 200 mg capsule 200 mg PO BID #180 caps 11/25/23 05/30/24 Rx alprazolam 0.25 mg tablet (Xanax) 0.25 mg PO BID PRN anxiety #30 tabs 05/05/24 05/30/24 Rx escitalopram oxalate 20 mg tablet 20 mg PO HS 05/30/24 05/30/24 History fenofibrate nanocrystallized 145 145 mg PO HS 05/30/24 05/30/24 History mg tablet rosuvastatin 20 mg tablet 20 mg PO HS 05/30/24 05/30/24 History Sedation/Anesthesia: No previous sedation/anesthesia problems (including family history). [facility] Past Medical History Medical History (Updated 05/10/24 @ 08:19 by PAULA Durham-Apoorva) Annual visit for general adult medical examination with abnormal findings Bladder cancer Elevated glucose level Facial skin lesion Heart attack Screening for metabolic disorder Screening for prostate cancer Vitamin D deficiency, unspecified Witnessed apneic spells Surgical History Surgical History History of open heart surgery CABG x 2 ' Total knee replacement status Family History Family History Father Family history of primary malignant neoplasm of liver Mother Family history of malignant neoplasm of brain Sibling Diabetes mellitus Other Family history of arthritis Family history of malignant neoplasm Social History Social History Smoking packs per day: 1.5 Smoking cigarettes per day: 30.0 Years smoked: 38 Smoking pack-years: 57.00 Smoking status: Former smoker (20 years ago) Tobacco type: cigarettes Second hand tobacco smoke exposure: No Smoking end date: 11/16/03 Alcohol intake: current Alcohol use details: STATES NONE 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, BEER ON WEEKENDS summer Substance use: never Substance use type: does not use Lack of Transportation: No Lack of Food: Never True Current Housing: I Have Housing Concerned About Future Housing: No Difficulty Paying Gas/Electric Bills: No Difficulty Paying for Meds: No Currently Unemployed: No Education: Grade School Difficulty w/ Childcare or Family Care: No Living arrangements: with family Gender identity (if verbalized by the patient): Male Sexual Orientation (if Verbalized by the Patient): Straight or Heterosexual Spiritual care concerns: No Mod Sed Physical Exam Physical Exam Pre Procedural Exam: Normal: Appearance, Neck, Throat, Airway, Lungs, Heart Size, Heart Rhythm ( sinus bradycardia), Neuro Exam and Extremities and Variation: Heart Rate ( heart rate 43) Hours since solid foods: 12 Hours since liquid intake: 12 Mallampati Classification: class II Internal Medicine - PN: Obj Da Vital Signs Vital Signs: Vital Signs - 24 hr 05/30/24 07:32 Temperature 36.6 C Pulse Rate 43 L Respiratory Rate 16 Blood Pressure 160/64 H Pulse Oximetry 98 Oxygen Delivery Room Air Labs 05/30/24 07:24
--- NOTE | 2024-05-30 10:23 | WPDCARDPROC ---
Cardiac Cath Procedure Note Date of procedure:: 05/30/24 Performing physician:: Rao Yao MD Indication:: sick sinus syndrome Brief clinical history:: this is a 73-year-old man with chronic stable coronary artery disease who is having problems symptomatic bradycardia with sick sinus syndrome for treatment of this implantation of dual-chamber pacemaker has been recommended and scheduled for today Procedure Procedure performed:: implantation of permanent Medtronic dual-chamber pacemaker Sedation/Medication given:: fentanyl 50 mg Versed 2 mg case start time 9:27 a.m. case end time 10:16 a.m. sedation provided by Trini Jimenez RN, trained observer Access site:: left anterior chest wall Estimated blood loss:: minimal Procedure note:: patient was brought to the cardiac catheterization lab in the postabsorptive state where the left anterior chest wall was prepped and draped in the normal sterile fashion. Anesthesia was given with 20 cc of ligating inferior to the clavicle. An incision was then made along this line of anesthesia from the midclavicular line to the deltopectoral groove about 1 in below the clavicle. Using sharp and blunt dissection the subcutaneous tissue was and electrocautery was used to provide cutaneous hemostasis. Using blunt dissection a pacemaker pocket was then created along the prepectoral fascial plane. The pocket was then packed with antibiotic soaked 4 x 4. Attention was then turned to venous access. Two punctures were made of the left subclavian vein and J guidewires were placed into the venous circulation to the level of the right atrium under fluoroscopic visualization. Using 2 7 Swedish pacemaker safe sheaths the leads described below were advanced into the venous circulation then placed into the right atrium the sheaths were peeled away. Attention was then turned to placing the ventricular lead. The stylet was removed and a 3 cc syringe was used to form a J-tip done a stylet the lead was then directed to the RV out to the pulmonary artery position. It was withdrawn and placed into the right ventricular wall not quite out to the apex. This was maneuvered 2 times in this was the position where the lead was falling. This was then except as the position the fixation screw was deployed appropriate pacing and sensing performance was demonstrated and with high output there was no extracardiac stimulation. Following this attention was turned to the atrial lead. The stylet was removed and a preformed atrial J stylet was placed this was maneuvered into the right atrial appendage position. The fixation screw was deployed upon withdrawal of the stylet the lead was fixed into position. The analyzer was used to test the lead good pacing and sensing performance was demonstrated and again at 10 volts high-output stimulus did not show any evidence of extracardiac stimulation. The leads were then secured to the base of pocket using the suture sleeves and 2-0 silk ties. The retained sponge was removed and the pocket was irrigated with Ancef infused saline. The pacemaker generator was then connected to the leads using the torque wrench in the tire assembly was placed into the newly created pocket. The skin was then closed using 3-0 Vicryl in an interrupted fashion for the subcutaneous tissue and then 4-0 Vicryl in a running subcuticular fashion for the skin. The wound was dressed with an Aquacel dressing he was taken to the holding area with the left arm being placed in an immobilizer at with bed rest ordered a postop antibiotics chest x-ray analgesics were ordered. Procedure was well tolerated and there were no apparent complications. Findings:: Patient received a Summizetronic dual-chamber pacemaker model [id number]. serial number [id number] . The device is programmed in the AAIR / DDDR mode lower rate limit 60 upper rate limit 130 mode switching is on av delay 180/150 milliseconds. The atrial l
--- NOTE | 2024-05-30 12:12 | ADMGEN ---
This patient, Juanito Reed, was admitted to -. Patient/family oriented to hospital policies and general routines including ID bracelet, bed and alarms, visiting hours, pain management, procedures, bathroom and other care routines, personal items, smoking policy, room service/diet, and visiting hours. Information on how to activate the Rapid Response Team has been discussed. Patient/Family are encouraged to report perceived risks to care and to ask questions if they do not understand what they are told or what they should do.
[2024-05-30] MEDS: SODIUM CHLORIDE 0.9% IV 1,000 ML 50 ML IV CONT (12:37)
[2024-05-30] MEDS: ceFAZolin 1 GM/NS 50 ML 1 GM/50 ML BAG IVPB (18:28)
[2024-05-30] MEDS: HYDROcodone/acetaminophen (*CRX) 5-325 MG TABLET 2 TAB PO (21:05)
[2024-05-31] VITALS (7 sets, daily range): BP systolic 154–173; BP diastolic 60–81; PULSE 59–61; RESP 16–18; TEMP 35.9–36.6; O2SAT 94–97
[2024-05-31] MEDS: ceFAZolin 1 GM/NS 50 ML 1 GM/50 ML BAG IVPB (00:22)
--- NOTE | 2024-05-31 10:43 | PM.DS ---
DS: Admitting Diagnosis Discharge Date 05/31/2024 Admitting Diagnosis symptomatic bradycardia DS: Discharge Diagnosis Discharge Diagnosis (1) Bradycardia: Code(s): R00.1 - Bradycardia, unspecified Status: Acute Assessment and Plan: Sick sinus syndrome with symptomatic bradycardia now s/p Medtronic PPM. Device check this morning showed normal device function CXR clear, no pneumothorax Patient feeling well today with no complaints Pacemaker restrictions reviewed OK for discharge with follow up next week (2) Essential hypertension: Code(s): I10 - Essential (primary) hypertension Status: Acute Assessment and Plan: Blood pressure above goal throughout admission. Will increase amlodipine to 10mg daily. DS: Summary Hospital Course Hospital Course: Admitted for overnight observation following permanent pacemaker insertion for symptomatic bradycardia. No acute vents overnight. CXR performed earlier this morning was clear with no pneumothorax. Device is functioning appropriately. Stable for discharge home today. Time Spent with Patient Time attestation: Total time spent providing and/or coordinating discharge services: Exam Const: General: comfortable, no acute distress, alert and awake Orientation/consciousness: patient oriented x3 HENMT: Head: normal to inspection Eyes: General: appearance normal, both eyes and all related structures Pupils: Equal, round and reactive pupils present Neck: Neck: normal visual inspection, supple and no JVD Carotids: normal carotid upstroke Resp: Effort & Inspection: normal respiratory effort Auscultation: clear to auscultation bilaterally Cardio: Rate: regular rate Rhythm: regular rhythm Heart sounds: S1 normal heart sound present, S2 normal heart sound present and no murmurs GI: Auscultation: normal bowel sounds Skin: General skin exam: normal color Other: Left pectoral incision covered with sterile dressing. Clean, dry, intact. No hematoma. Neuro: General: patient oriented x3 Cranial nerves: Yes Equal, round and reactive pupils present Extrem: General: normal to inspection Psych: Appearance: grossly normal Mental Status: mental status grossly normal Discharge Plan Discharge Patient Disposition: Home, Self-Care Discharge Instructions: [facility] [address] [place] [address] DISCHARGE INSTRUCTIONS - POST PACEMAKER Activity 1. No driving until you are seen in the office for your incision check. 2. No lifting, pushing or pulling more than 5 pounds with affected arm for 1 MONTH 3. No lifting affected arm above shoulder height for 1 MONTH 4. Wear immobilizer/sling only if you are unable to remember the above activity restrictions. Recommend that it be worn at night. 5. You may shower AFTER you are seen for incision check but no tub baths, swimming pool or hot tub for 1MONTH Wound Care 1. Do not attempt to remove the Aquacel dressing. Leave dressing undisturbed until incision check at the office visit. Keep dressing dry. 2. When you are able to shower AFTER you are seen for your incision check in the office do not rub or scrub the incision. Pat dry after shower. NO lotions, powders, creams or ointments are to be applied to the incision 3. A small amount of tenderness, puffiness and bruising around the site is normal. Call if any significant pain, drainage, swelling, or redness around the site 4. Woman: Wear a bra to s
== END 2024-05-31 13:05 | disposition home or self-care (01) ==
LOC: ANHCATHLAB 11:13 → ANH3MEDSUR 12:37
PROVIDERS: PCP Clinical Nurse Specialist; Visit Provider Specialist
PROC: 0JH606Z Insertion of Pacemaker, Dual Chamber into Chest Subcutaneous Tissue and Fascia, Open Approach (ICD-10-PCS; CPT 33208; principal; 2024-05-30 08:30)
DX: I49.5 Sick sinus syndrome (principal); I25.10 Atherosclerotic heart disease of native coronary artery without angina pectoris; I25.2 Old myocardial infarction; E55.9 Vitamin D deficiency, unspecified; Z79.82 Long term (current) use of aspirin; Z87.891 Personal history of nicotine dependence
CPT/HCPCS: 33208; 36415; 71045; 71046; 80048; 85025; 85610; 93005; A9270; C1779; C1785; J0690; J2250; J3010; J7030; J7040

== ENCOUNTER 2024-11-04 09:28 | Outpatient (CLI) | payer OTHER, SELFPAY ==
[2024-11-04 18:23] LABS: Anion Gap 4 mmol/L (4-12); Blood Urea Nitrogen 23 mg/dL (9-20); Calcium 10.2 mg/dL (8.4-10.2); Carbon Dioxide 32 mmol/L (22-30); Chloride 103 mmol/L (98-107); Estimated Glomerular Filt Rate > 60; Glucose 82 mg/dL (65-110); Potassium 5.2 mmol/L (3.4-5.0); Sodium 139 mmol/L (137-145)
== END 2024-11-04 09:29 | disposition home or self-care (01) ==
LOC: ANHGOSHLAB 09:30
PROVIDERS: PCP Internal Medicine; Visit Provider Clinical Nurse Specialist
DX: I10 Essential (primary) hypertension (principal)
CPT/HCPCS: 36415; 80048

== ENCOUNTER 2025-02-14 11:16 | Outpatient (CLI) | payer OTHER, SELFPAY ==
--- NOTE | ~2025-02-14 | XR_ITS ---
EXAM: XR hand BI arthritis min 3V DATE: 02/14/2025 11:59 HISTORY: Chronic pain bilat hands . COMPARISON: None available. FINDINGS: Normal mineralization. No acute fracture or dislocation. Mallet finger at the left third D IP joint. No lytic or blastic lesion. Chondrocalcinosis. Scattered degenerative changes, severe at th e right first MCP joint and bilateral triscaphe joints, moderate at the right third MCP joint, and mi ld bilateral interphalangeal joints. No erosion or periosteal change. Right opaque foreign body in th e left thenar soft tissues. 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 Left thenar soft tissue foreign body. Reviewed, dictated and finalized at location K. IMPRESSION: Polyarticular degenerative change of the hands and wrists, with cho ndrocalcinosis, consider osteoarthritis and CPPD the differential. Left thenar soft tissue foreign body.
== END 2025-02-14 11:17 | disposition home or self-care (01) ==
LOC: GOSHIMG 11:16
PROVIDERS: PCP Clinical Nurse Specialist; Visit Provider Clinical Nurse Specialist
DX: M25.541 Pain in joints of right hand (principal); M25.542 Pain in joints of left hand; M79.672 Pain in left foot; M11.242 Other chondrocalcinosis, left hand; M11.241 Other chondrocalcinosis, right hand
CPT/HCPCS: 73130; 73630

== ENCOUNTER 2025-10-16 10:19 | Outpatient (CLI) | payer OTHER, SELFPAY ==
--- OUTSIDE RECORDS SUMMARY | 2025-10-16 11:37 | XMS_ITS | Encounter Summary ---
Author Organization [facility] Address [address] [place] [address] Care Team Providers Care Web Developer Name Role Phone Rik Hodgson MD Primary Care Provider [phone] Encounter Details Date Type Department Care Team (Late st Contact Info) Description 12/31/2021 Lab Requisition [facility] [address] [place] [address] Jairo Ignacio MD [address] [facility] [place] [address] Social History Tobacco Use Types Packs/Day Years Used Date Smoking Tobacco: Never Assessed Sex and Gender Information Value Date Recorded Sex Assigned at Not on file 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 Gender Identity Not on file Sexual Orientation Not on file documented as of this encounter Plan of Treatment Not on file documented as of this encounter Procedures Procedure Name Priority Date/Time Associated Diagnosis Comments DERMATOPATHOLOGY Routine 12/30/2021 12:0 0 AM AUTISM TEACHER documented in this encounter Results * DERMATOPATHOLOGY (12/30/2021 12:00 AM AUTISM TEACHER) Case Report Dermatopathology Report Case: [id number] Authorizing Provider: Jairo Ignacio MD Collected: 12/30/2021 12:00 AM Ordering Location: [facility] Received: 12/31/2021 03:22 PM Pathologist: Preston Peguero MD Specimen: Skin, right nasal ala 2 4:10 PM AUTISM TEACHER DERMATOPATHOLOGY LABORATORY Final Diagnosis Specimen A. 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 Path # [id number]. 2 4:10 PM [facility] Gross Description Specimen A: Received is one formalin filled container labeled with the patient's name and designated right nasal ala. The specimen consists of a shave biopsy measuring [id number]. Jar 0. 2 4:10 PM [facility] Microscopic Description Specimen A. SKIN, right nasal ala: There is acanthosis consisting of fairly uniform squamous cells with eosinophilic cytoplasm and squamous eddies. 2 4:10 PM [facility] Disclaimer An external and internal positive and negative controls are appropriate for the histochemical, immunohistochemical and immunofluorescence stain(s) in this case (if any), except where stated explicitly. The performance characteristics of the stain(s) cited in this report were developed and its performance characteristic determined by the Dermatopathology Laboratory at [facility], directed by Dr. Ousmane Peguero. These tests need not be, and therefore are not, approved by the [place] Food and Drug Administration. The tests are used for clinical purposes. Billing Codes Specimen Charges Stain Charges 65374 1 2 4:10 PM AUTISM TEACHER DERMATOPATHOLOGY LABORATORY Embedded Images 2 4:10 PM [facility] Pathology/Cytolog y TISSUE SPECIMEN FROM SKIN / Unknown 12/30/2021 12/31/2021 3:22 PM AUTISM TEACHER us Jairo Ignacio MD LAB - PATHOLOGY/CYTOLOGY ORDER SHWETA Final Result DERMATOPATHOLOGY LABORATORY [facility] - Department of Dermatology [address] [place] [address], [facility] [phone] documented in this encounter Visit Diagnoses Not on filedocumented in this encounter Care Teams Web Developer Relationship Specialty Start Date End Date Rik Hodgson MD [address] [place] [address] PCP - General 11/24/19 documented as of this encounter
--- OUTSIDE RECORDS SUMMARY | 2025-10-16 11:37 | XMS_ITS | Encounter Summary ---
Author Organization [facility] Address [address] [place] [address] Care Team Providers Care Eye Clinic Manager Name Role Phone Alfredo Duran DO Primary Care Provider [phone] Toya Connolly DO Primary Care Provider + Alfredo Duran DO Unavailable [phone] Carmencita King NP Primary Care Provider + [phone] Encounter Details Date Type Department Care Team (Late st Contact Info) Description 05/07/2022 Orders Only [facility] Information Management [address] [place] [id number] Scanning, Provider Social History Tobacco Use Types Packs/Day Years Used Date Smoking Tobacco: Former Cigarettes Q uit: 11/16/2002 Sex and Gender Information Value Date Recorded Sex Assigned at Not on file Legal Sex Male 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 Gender Identity Not on file Sexual Orientation Not on file documented as of this encounter Plan of Treatment Not on file documented as of this encounter Procedures Procedure Name Priority Date/Time Associated Diagnosis Comments SCAN - LABS 05/07/2022 documented in this encounter Results * SCAN - LABS (05/07/2022) us Provider Scanning Final Result documented in this encounter Visit Diagnoses Not on filedocumented in this encounter Additional Health Concerns Infection Onset Date Last Indicated Resolved Time COVID: Suspected 09/15/2024 09/15/2024 09/15/2024 11:59 AM CDT documented as of this encounter Care Teams Eye Clinic Manager Relationship Specialty Start Date End Date Alfredo Duran DO PCP - General Internal Medicine 05/23/21 07/31/22 Toya Connolly, PCP - General Family Medicine 08/01/22 02/24/24 Carmencita King NP PCP - General Cardiovascular Disease 02/25/24 Alfredo Duran DO Internal Medicine 08/01/22 documented as of this encounter
--- OUTSIDE RECORDS SUMMARY | 2025-10-16 11:37 | XMS_ITS | Clinical Summary ---
Author Organization [facility] Address [address], [facility] [address] [place] [address] Phone Care Team Providers Care Cloth Coverer Name Role Phone Gopal Nguyen DO Unavailable Allergies No known active allergies Medications polyethylene glycol (MIRALAX) Powder Use entire 255g bottle with 64oz of clear liquid as directed for colonoscopy prep. 255 g 0 6 Active NIACIN, ANTIHYPERLIPIDE INEZ, PO Take 2,000 mg by mouth daily. Active celecoxib (CELEBREX) 200 MG Capsule Take 200 mg by mouth daily. Active citalopram (CELEXA) 20 MG Tablet Take 20 mg by mouth daily. Active rosuvastatin (CRESTOR) 20 MG Tablet Take 20 mg by mouth daily. Active traMADol (ULTRAM) 50 MG Tablet Take 50 mg by mouth every 6 hours as needed for Pain. Active B Ralbrlg-O-Ondey Acid (MULTIPLE VITAMIN STRESS FORMULA) Tablet Take 1 Tab by mouth daily. Active Aspirin 81 MG Tablet Take 81 mg by mouth daily. Active Testosterone (ANDROGEL) 40.5 MG/2.5GM (1.62%) Gel 1 Applicator by Transdermal route daily. Active Family History Medical History Relation Name Comments Diabetes Brother Liver Cancer Father Cancer Mother Brain Tuberculosis Other Uncle Diabetes Sister Relation Name Status Comments Brother Father Mother Other Sister Social History Tobacco Use Types Packs/Day Years Used Date Smoking Tobacco: Former Cigarettes 2 40 Smokeless Tobacco: Never Alcohol Use Standard Drinks/Week Comments Yes 0 (1 standard drink = 0.6 oz pur e alcohol) Social Sex and Gender Information Value Date Recorded Sex Assigned at Not on file Legal Sex Male 8:11 AM CDT Gender Identity Not on file Sexual Orientation Not on file Plan of Treatment Health Maintenance Due Date Last Done Comments Hepatitis C Virus (HCV) Screening 1950 TdaP Immunization 1949 Cologuard 1994 Immunochemical Fecal Occult Blood 1994 Pneumococcal Immunization (5 0+ years) (1 of 1 - PCV) 1999 Zoster Immunization (1 of 2) 1999 Respiratory Syncytial Virus (RSV) Immunization (Adult) (1 - 1-dose 75+ series) 2024 Influenza Immunization (#1) 2025 SARS-COV-2 Immunization ( - season) 2025 Colonoscopy 10/27/2026 10/27/2016 Colorectal Cancer Screening 10/27/2026 Hepatitis B Immunization Aged Out No longer eligible based on patient's age to complete this topic Human Papillomavirus (HPV) Immunization Aged Out No longer eligible b ased on patient's age to complete this topic Meningococcal Immunization (ACWY) Aged Out No longer eligible based on patient's age to complete this topic Rotavirus Immunization Aged Out No lo nger eligible based on patient's age to complete this topic Procedures Procedure Name Priority Date/Time Associated Diagnosis Comments COLONOSCOPY Routine 10/27/2016 from Last 3 Months or Most Recently Relevant to Health Maintenance Results * HM COLONOSCOPY (10/27/2016) Rik Hodgson MD PROCEDURE/MINOR SURGICAL ORD ERABLES Final Result from Last 3 Months or Most Recently Relevant to Health Maintenance Care Teams Cloth Coverer Relationship Specialty Start Date End Date Gopal Nguyen DO Gastroenterology 10/30/16
--- OUTSIDE RECORDS SUMMARY | 2025-10-16 11:37 | XMS_ITS | Clinical Summary ---
Author Organization [facility] Address [address] [place] [address] Care Team Providers Care Biodiesel Product Development Manager Name Role Phone Carmencita King [facility] Primary Care Provider [phone] Social History Tobacco Use Types Packs/Day Years Used Date Smoking Tobacco: Never Assessed Sex and Gender Information Value Date Recorded Sex Assigned at Not on file Legal Sex Male 8:46 AM CDT Gender Identity Not on file Sexual Orientation Not on file Plan of Treatment Health Maintenance Due Date Last Done Comments Colorectal Cancer Screening Colonoscopy (10 Years) 1949 Hepatitis C 1967 DTaP, Tdap and Td Vaccines ( 1 - Tdap) 1968 Pneumococcal Vaccine: 50+ Ye ars (1 of 1 - PCV) 1999 Zoster Vaccines (1 of 2) 1999 Annual Medicare Wellness Visit 2014 RSV Immunization or 60+ Years (1 - 1-dose 75+ series) 2024 COVID-19 Vaccine ( - 2024-2 6 season) 2025 Influenza Adult (#1) 2025 Hepatitis A Vaccines Aged Out No long er eligible based on patient's age to complete this topic Meningococcal B Vaccine Aged Out No l onger eligible based on patient's age to complete this topic Meningococcal Vaccine Aged Out No fifi efrain eligible based on patient's age to complete this topic RSV Immunizations Under 20 Months Aged Out No longer eligible based on patient's age to complete this topic Insurance [employer] Care Teams Biodiesel Product Development Manager Relationship Specialty Start Date End Date Carmencita King FNP [facility] [place] [address] PCP - General NURSE PRACTITIONER 05/15/21
--- OUTSIDE RECORDS SUMMARY | 2025-10-16 11:37 | XMS_ITS | Clinical Summary ---
Author Organization [facility] [address] Address [address] [place] [address] Care Team Providers Care Grounds Worker Name Role Phone Alfredo Duran DO Unavailable [phone] Carmencita King NP Primary Care Provider [phone] Allergies No known active allergies Medications aspirin 81 mg enteric coated tablet Take 1 tablet (81 mg total) by mouth daily Active celecoxib (CeleBREX) 200 mg capsule Take 1 capsule (200 mg total) by mouth daily Active escitalopram (LEXAPRO) 20 mg tablet Take 1 tablet (20 mg total) by mouth daily 1 Active fenofibrate nanocrystallized (TRICOR) 145 mg tablet Take 1 tablet (145 mg total) by mouth daily 1 Active rosuvastatin (CRESTOR) 20 mg tablet Take 1 tablet (20 mg total) by mouth daily Active amLODIPine (NORVASC) 5 mg tabletIndications:Es sential hypertension TAKE 1 TABLET (5 MG TOTAL) BY MOUTH DAILY. 90 tablet 3 Active cyanocobalamin, vitamin B-12, (VITAMIN B-12 ORAL) Take 1 tablet by mouth daily Active ALPRAZolam (XANAX) 0.25 mg tablet 0.25 MG ORALLY TWICE A DAY NEEDED FOR ANXIETY 4 Active Active Problems Problem Noted Date Diagnosed Date Cardiac pacemaker in situ 05/31/2024 Overview (05/31/2024): Medtronic [place] Dual Pacemaker. Dx; SSS, Bradycardia. DOI 05/30/2024-Najma. Casilink remote. 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 06/10/2021 Hx of CABG 06/10/2021 Mixed hyperlipidemia 06/10/2021 Encounters Date Type Department Care Team Description 10/03/2025 Orders Only [facility] Cardiology [address] [place] [phone] Raj Yi MD Bradycardia (Primary Dx); Cardiac pacemaker in situ; Sick sinus syndrome (HCC) 08/05/2025 8:00 AM CDT Ancillary Procedure [facility] [address] [place] [phone] Cardiac pacemaker in situ (Primary Dx); Sick sinus syndrome (HCC); Bradycardia from Last 3 Months Surgical History Surgery Date Site/Laterality Comments CORONARY ARTERY BYPASS GRAFT REPLACEMENT TOTAL KNEE CARPAL TUNNEL RELEASE Medical History Medical History Date Comments Ringing in ears [place] (myocardial infarction) (HCC) Vitamin D deficiency Hyperlipidemia Skin disorder Wears dentures WILDE (dyspnea on exertion) Sleep apnea Bladder cancer (HCC) Family History Medical History Relation Name Comments Cancer Father malignant neoplasm of liver Father malignant neoplasm of brain Mother Relation Name Status Comments Father (Age 72) Mother (Age 62) Social History Tobacco Use Types Packs/Day Years Used Date Smoking Tobacco: Former Cigarettes Q uit: 11/16/2002 Smokeless Tobacco: Never Tobacco Cessation:Counseling Given: Not Answered Personal Safety Answer Date Recorded Have you ever been in or are you currently in a harmful physical or emotional relationship or is someone making you feel afraid or unsafe? 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 Gender Identity Not on file Sexual Orientation Not on file Last Filed Vital Signs Vital Sign Reading Time Taken Comments Blood Pressure 130/60 2024 8:55 AM GIMP TACKER Pulse 91 2024 8:55 AM GIMP TACKER Temperature 36.1 C (97 F) 09/15/2024 11:31 AM CDT Respiratory Rate 16 09/15/2024 11:3 1 AM CDT Oxygen Saturation 99% 2024 8:55 AM GIMP TACKER Inhaled Oxygen Concentration - - Weight 92.4 kg (203 lb 11.2 oz) 2024 8:55 AM GIMP TACKER Height 177.8 cm (5' 10) 2024 8:55 AM GIMP TACKER Body Mass Index 29.23 2024 8:55 AM GIMP TACKER Plan of Treatment Health Maintenance Due Date Last Done Comments Colon Cancer Screening-Colonoscopy 1950 Depression Screening 1949 Hepatitis C Screening 1949 Hepatitis B Screening 1967 Pneumococcal vaccine 65+ (1 of 2 - PCV) 1968 Zoster Vaccine (1 of 2) 1999 Abdominal Aortic Aneurysm (A AA) Screen 2014 Well Visit 65+ 2014 Fall Risk Assessment 03/08/2025 03/08/2024 Influenza Vaccine (#1) 2025 2, 09/11/2021, 08/23/2020, Additional history exists DTaP/Tdap/Td Vaccine (2 - Td or Tdap) 06/13/2028 06/13/2018 Medical Devices Implanted Type Area Account Executive [employer] Device Identifier Shelf Expiration Date Model / Serial / Lot [facility] [employer] [employer] Device Closure Vascade Od5 Fr Femoral Artery [id number] - [id number] Implanted:Qty: 1 on 03/08/2024 by Kira Monique MD at [facility] 10/12/2025 [id number] / / [id number] Procedures Procedure Name Priority Date/Time Associated Diagnosis Comments DEVICE CHECK - REMOTE Routine 08/07/2025 9:44 AM CDT Sick sinus syndrome (HCC) Bradycardia from Last 3 Months Results * DEVICE CHECK - REMOTE (08/07/2025 9:44 AM CDT) Anatomical Region Laterality Modality Other Narrative 08/25/2025 10:57 AM CDT Medtronic [place] Dual Pacemaker. Dx; SSS, Bradycardia. DOI 05/30/2024-Najma. Carelink remote. Routine AAIR <> DDDR Pacemaker Remote. Transmission attached. Battery status: 3.04 V , 12.3 years remaining battery life to JOSE. Stable lead impedances, pacing and sensing thresholds. Presenting rhythm: AP/VS AP-93.6%, BAN[place] MILL OPERATOR-< 0.1% No AT/AF episodes noted. No Ventricular high rate episodes detected. Medications: Amlodipine 5 mg, ASA 81 mg See scanned report. Office pacemaker follow up: 10/04/25 CareLink remote f/u 5 months. Derick Xiao RN Kira Monique MD [facility] PROCEDURES Final Result from Last 3 Months Insurance HEALTHCARE HEALTHCARE HEALTHCARE Advance Directives For more information, please contact: [phone] * Full Code (Latest Code Status on File) Date Activated Date Inactivated Comments 03/08/2024 11:11 AM 03/08/2024 5:35 PM Care Teams Grounds Worker Relationship Specialty Start Date End Date Carmencita King NP PCP - General Cardiovascular Disease 02/25/24 Alfredo Duran DO Internal Medicine 08/01/22
--- OUTSIDE RECORDS SUMMARY | 2025-10-16 11:37 | XMS_ITS | Clinical Summary ---
Author Organization [facility] Address [address] [place] [address] Care Team Providers Care Surgical Scrub Technician Name Role Phone Rik Hodgson MD Primary Care Provider [phone] Source Comments [facility],non-owned Affiliates and Associated Physician Practices is amultiple site organization consisting of ambulatory clinics and hospital sitesin [place], [place], [place] and [place]. This disclosure is being madepursuant to the Care Everywhere program and may not contain all information available regarding this patient. Last updated 18.[facility] [employer] Social History Tobacco Use Types Packs/Day Years Used Date Smoking Tobacco: Never Assessed Sex and Gender Information Value Date Recorded Sex Assigned at Not on file Legal Sex Male 9:45 AM STAGE DRIVER Gender Identity Not on file Sexual Orientation Not on file Plan of Treatment Health Maintenance Due Date Last Done Comments COLOGUARD (AGES 45-75) - COL ON CA SCREENING 1949 COLON MONITORING 1949 COLONOSCOPY - COLON CA SCREENING 1949 CT COLONOGRAPHY - COLON CA SCREENING 1949 Colorectal Cancer Screening 1949 FIT - COLON CA SCREENING 1949 FLEX SIG - COLON CA SCREENING 1949 LIPID TESTING 1949 HEPATITIS C SCREENING 11/10/1967 DTAP/TDAP/TD VACCINES (1 - Tdap) 1968 PNEUMOCOCCAL VACCINE 50+ (1 of 1 - PCV) 1999 ZOSTER VACCINE (1 of 2) 1999 Respiratory Syncytial Virus (RSV) Vaccine Pt: or over 60 yrs (1 - 1-dose 75+ series) 2024 DEPRESSION SCREENING 11/16/2024 COVID-19 VACCINE (1 - 2024-2 6 season) 2025 INFLUENZA VACCINE (#1) 2025 HEPATITIS B VACCINE Aged Out No longe r eligible based on patient's age to complete this topic HIB VACCINE Aged Out No longer eligi ble based on patient's age to complete this topic HPV VACCINE Aged Out No longer eligi ble based on patient's age to complete this topic MENINGOCOCCAL (Group B) VACC INE SHARED DECISION-MAKING Aged Out No longer eligibl e based on patient's age to complete this topic MENINGOCOCCAL GROUPS A/C/Y/W VACCINE Aged Out No longer eligible b ased on patient's age to complete this topic Insurance MEDICARE Care Teams Surgical Scrub Technician Relationship Specialty Start Date End Date Rik Hodgson MD [address] [address] PCP - General 11/24/19
[2025-10-16 19:31] LABS: Hematocrit 44.7 % (42.0-52.0); Hemoglobin 14.2 g/dL (14.0-18.0); Immature Granulocyte Percent A 0.2 % (0-0.5); Lymphocytes Absolute Auto 2.18 K/mm3 (0.9-3.2); Mean Corpuscular HGB Conc 31.8 g/dl (32-36); Mean Corpuscular Hemoglobin 29.8 pg (26-34); Mean Corpuscular Volume 93.7 fl (80-100); Nucleated Red Blood Cells Absolute Auto 0.000 K/mm3 (0.0-0.012); Nucleated Red Blood Cells Perc 0.0 % (0.0-0.2); Platelet Count Result 273 k/mm3 (150-375); Red Blood Count 4.77 M/mm3 (4.6-6.20); White Blood Count 5.9 K/mm3 (4.5-10.0)
[2025-10-16 19:48] LABS: Alanine Aminotransferase 100 U/L (6-50); Albumin Level 4.7 g/dL (3.5-5.1); Alkaline Phosphatase 64 U/L (38-126); Anion Gap 5 mmol/L (4-12); Aspartate Amino Transferase 149 U/L (17-59); Bilirubin,Total 0.6 mg/dL (0.2-1.3); Blood Urea Nitrogen 22 mg/dL (9-20); CRP < 0.5 mg/dL (<1.0); Calcium 10.2 mg/dL (8.4-10.2); Carbon Dioxide 31 mmol/L (22-30); Chloride 103 mmol/L (98-107); Estimated Glomerular Filt Rate > 60; Glucose 112 mg/dL (65-110); Potassium 4.7 mmol/L (3.4-5.0); Sodium 139 mmol/L (137-145); Total Protein 7.8 g/dL (6.3-8.2)
[2025-10-16 21:08] LABS: MALB Creatinine Ratio 6.4 mg/g (0-30)
[2025-10-16 21:17] LABS: Hemoglobin A1C 6.4 % (<5.7)
[2025-10-17 15:09] LABS: ANA by IFA Rfx Titer/Pattern Positive (.)
== END 2025-10-16 10:20 | disposition home or self-care (01) ==
LOC: ANHGOSHLAB 10:20
PROVIDERS: PCP Internal Medicine; Visit Provider Clinical Nurse Specialist
DX: E87.5 Hyperkalemia (principal); Q61.02 Congenital multiple renal cysts; M25.541 Pain in joints of right hand; M25.542 Pain in joints of left hand; M25.562 Pain in left knee; G89.29 Other chronic pain; M25.551 Pain in right hip; R53.83 Other fatigue; K76.0 Fatty (change of) liver, not elsewhere classified; R73.09 Other abnormal glucose; I10 Essential (primary) hypertension; I25.119 Atherosclerotic heart disease of native coronary artery with unspecified angina pectoris; M79.669 Pain in unspecified lower leg
CPT/HCPCS: 36415; 80053; 82043; 83036; 85025; 85652; 86038; 86140; 86430

== ENCOUNTER 2025-10-16 10:36 | Outpatient (CLI) | payer OTHER, SELFPAY ==
--- NOTE | ~2025-10-16 | XR_ITS ---
EXAMINATION: XR hip RT min 2V, 10/16/2025 10:54 PLATE FILLER HISTORY: Pain in right hip x 2 months, no inj, no surg COMPARISON: No comparisons available. Findings: No acute fracture or malalignment. No significant degenerative changes. Soft tissues unremarkable. Impression: No acute fracture or malalignment. Reviewed, dictated and finalized at location P. E FILLER Impression: No acute fracture or malalignment.
== END 2025-10-16 10:37 | disposition home or self-care (01) ==
PROVIDERS: PCP Internal Medicine; Visit Provider Clinical Nurse Specialist
DX: M25.551 Pain in right hip (principal)
CPT/HCPCS: 73502

== ENCOUNTER 2025-11-02 08:21 | Outpatient (CLI) | payer OTHER, SELFPAY ==
--- NOTE | ~2025-11-02 | US_ITS ---
ULTRASOUND ABDOMEN LIMITED (RIGHT UPPER QUADRANT) Clinical History: R74.01 - Elevation of levels of liver transaminase levels Comparison: CT chest abdomen pelvis 03/18/2023 Technique: Right upper quadrant sonography Findings: Liver: Normal size. Echogenic. No intrahepatic biliary ductal dilatation. Normal hepatopedal flow main portal vein. Common Duct: Normal caliber. 5 mm. Gallbladder: No stones. No wall thickening. No pericholecystic fluid. Pancreas: Obscured by bowel gas. IMPRESSION: 1. Hepatic steatosis and/or hepatocellular disease. Reviewed, dictated and finalized at location R. ANICAL METER TESTER
== END 2025-11-02 08:22 | disposition home or self-care (01) ==
LOC: GOSHIMG 08:21
PROVIDERS: PCP Internal Medicine; Visit Provider Clinical Nurse Specialist
DX: K76.0 Fatty (change of) liver, not elsewhere classified (principal); K76.89 Other specified diseases of liver; R74.01 Elevation of levels of liver transaminase levels
CPT/HCPCS: 76705